=== PATIENT | male | born 1955 | race African-American/Black ===

== ENCOUNTER 2024-06-18 08:10 | Emergency (ER) | payer MEDICAID ==
[~2024-06-18] VITALS: Ht 170.2 cm; Wt 69.0 kg
[~2024-06-18 08:10] MED LIST: PHEN15TA25
[2024-06-18 08:12] VITALS: PULSE 102; O2SAT 97
[2024-06-18 08:17] VITALS: BP 124/76; RESP 16; TEMP 98.2; O2SAT 99
[2024-06-18 09:32] LABS: CLARITY URINE TURBID (CLEAR); COLOR URINE BLOODY (YELLOW); PH URINE 6.5 (4.5-8.0)
[2024-06-18 09:36] LABS: PROTEIN URINE 3+ (NEGATIVE)
[2024-06-18 09:37] LABS: GLUCOSE URINE TRACE (NEGATIVE); KETONES URINE 1+ (NEGATIVE); LEUKOCYTE ESTERASE URINE 2+ (NEGATIVE); NITRITE URINE POSITIVE (NEGATIVE); OCCULT BLOOD URINE 3+ (NEGATIVE); UROBILINOGEN URINE >=8.0 E.U./dL (0.2-1.0)
[2024-06-18 09:52] LABS: BACTERIA URINE 1+; RBC URINE TNTC /hpf (0-2); SQUAMOUS EPITHELIAL CELL URINE NONE SEEN /lpf (RARE/1+); YEAST URINE NONE SEEN
[2024-06-18] MEDS ORDERED: PHEN-815 MT (10:21)
[2024-06-18] MEDS ORDERED: CEFP200T13 MT (10:21)
== END 2024-06-18 10:31 | disposition home or self-care (01) ==
LOC: ER 08:30
DX: N39.0 Urinary tract infection, site not specified (principal); Z88.0 Allergy status to penicillin
CPT/HCPCS: 81003; 99283